=== PATIENT | male | born 1965 | race Hispanic/Latino ===

== ENCOUNTER → 2019-11-09 | Day surgery (SDC) | payer BC ==
[2019-11-06 15:28] LABS: BASOPHILS % 0.5 % (0.0-1.0); EOSINOPHILS # (AUTO) 0.2 (0.0-0.4); HEMATOCRIT 44.6 % (38.2-49.6); HEMOGLOBIN 14.7 g/dL (14.0-18.0); LYMPHOCYTES # (AUTO) 2.6 (1.0-3.2); LYMPHOCYTES % 33.7 % (18.0-39.1); MEAN CORPUSCULAR HEMOGLOBIN 29.3 pg (28-32); MEAN CORPUSCULAR VOLUME 88.8 fL (81-99); MONOCYTES # (AUTO) 0.9 (0.2-0.8); MONOCYTES % 11.6 % (4.4-11.3); NEUTROPHILS # (AUTO) 3.9 (2.1-6.9); NEUTROPHILS % 51.8 % (38.7-80.0); PLATELET COUNT 223 x10e3/uL (140-360); RED BLOOD COUNT 5.02 x10e6/uL (4.3-5.7); RED CELL DISTRIBUTION WIDTH 14.9 % (11.7-14.4)
[2019-11-06 16:15] LABS: BLOOD UREA NITROGEN 20 mg/dL (7-26); BUN/CREATININE RATIO 20 (6-25); CALCIUM 10.1 mg/dL (8.4-10.2); CHLORIDE 106 mmol/L (98-107); CREATININE, SERUM 0.99 mg/dL (0.72-1.25); EST GLOMERULAR FILTRATION RATE > 60 ML/MIN (60-); GLUCOSE 99 mg/dL (74-118); SODIUM 141 mmol/L (136-145)
[2019-11-06 16:35] LABS: CARBON DIOXIDE 20 mmol/L (22-29)
[~2019-11-09] MED LIST: AMLODIPINE BESY10 MG PO; ATORVASTATIN CA20 MG PO; CEFAZOLIN SOD 1 GM/NS 50ML 100 ML IV ONE; DEXAMETHASONE SOD PHOS INJ 4 MG/ML VIAL ONE; EPINEPHRINE 1 MG/ML 30ML VIAL ONE; EPINEPHRINE HCL 1:1000 1ML 1 MG/ML AMP ONE; FENTANYL CITRATE/PF 100MCG/2 ML INJ ONE; HYDROCHLOROTHIA25 MG PO; HYDROCODONE/APAP 10MG-325MG TAB ONE; KETOROLAC TROMETHAMINE 30 MG/ML VIAL ONE; LABETALOL HCL 5 MG/ML 20ML VIAL ONE; LIDOCAINE 2% /EPINEPHRINE 20 ML SDV INJ ONE; LIDOCAINE HCL 2% LOCAL INJ 5 ML SDV VIAL INJ ONE; LOSARTAN POTASS25 MG PO; MIDAZOLAM HCL 2 MG/2 ML VIAL ONE; NAPROXEN250 MG PO; ONDANSETRON HCL INJ 2MG/ML 2ML 2 MG/ML VIAL ONE; PROPOFOL IV EMULSION 10 MG/ML 20 ML VIAL ONE; ROCURONIUM BROMIDE 10 MG/ML 5ML VIAL IV ONE; ROPIVACAINE 0.5% 5 MG/ML 30 ML SDV ONE; SEVOFLURANE INHAL SOLN 250 ML PEN BTL ONE
[2019-11-09 10:20] VITALS: BP 125/81
--- NOTE | 2019-11-09 14:59 | Operative Report ---
DATE OF PROCEDURE: 11/09/2019 SURGEON: JUICE ROSS MD PLACE OF SURGERY: [facility]. HISTORY: Mr. Lanier is a 54-year-old male with ongoing complaints of pain of his right shoulder secondary to underlying rotator cuff tears as well as a labral tear of his right shoulder. The patient also has shoulder impingement. The patient elected to forgo any further conservative treatment and proceed on with a diagnostic arthroscopy of his right shoulder. The risks and benefits of surgery had been outlined to him in the Orthopedic Clinic as well as again prior to surgery consisting, but limited to the following: Infection, blood loss, nerve, vessel or tendon injury, DVT, ongoing pain, and stiffness. Informed consent was obtained. The patient was seen and identified in the preoperative holding area with his present. The right shoulder was marked by myself and the patient was then brought back to the operative suite after he was given a successful interscalene block by Anesthesia. A time-out was taken for Mr. Juan Alberto Lanier for diagnostic arthroscopy of his right shoulder and all were in agreement including nursing staff, Anesthesia, and myself. The patient was then given a successful general intubation anesthetic and then transferred over to the operative table and placed in the beach chair position with the right shoulder fully exposed. The right shoulder was then sterilely prepped and draped in usual standard fashion. The shoulder was inflated with 30 mL of sterile saline. A posterior portal was made, blunt trocar was inserted, and the arthroscopic camera was inserted. Immediately, it was noted that the patient has significant amount of villonodular synovitis throughout the entire shoulder joint. He had a significant labral tear noted along with a complete rotator cuff tear with mild retraction. Two anterior working portals were made as well as fourth lateral accessory portal was made using a 15 Bard-Gerald blade. Beginning anteriorly, I went ahead and did an arthroscopic synovectomy, removing all of the villonodular synovitis throughout the entire shoulder joint anteriorly and then posteriorly to both anterior lateral and posterior portals. This was done using a 4.0 shaver. Attention was then turned to the labral tear. The labral tear was mainly from the 12 down to approximately the 4 o'clock position. The glenoid attachment was abraded with a hand rasp and upon which time, 2 labral anchor sutures were passed through and anchors were deployed at approximately the 2 o'clock as well as the 4 o'clock position, reattaching the labrum back down to its bony insertion. Upon probing, the repair was found to be rather stable. We re-established the anterior labral bumper. The patient had marked underlying synovitis and fraying of the biceps tendon. The debridement was carried out of the fraying and the partial biceps tear. The rotator cuff tear was identified. Upon examination of the subacromial space, the complete rotator cuff tear was identified. The patient has marked impingement with marked AC arthrosis. Upon which time, through both the posterior and the lateral portal, an arthroscopic subacromial decompression was carried out using the 4.0 bur and arthroscopic cervical decompression was complete, i.e., acromioplasty. Attention then turned to the distal clavicle and degenerative AC joint. The same 4.0 bur was then used to complete the arthroscopic distal clavicle resection along with removal of degenerative AC meniscus and distal clavicle resection was completed arthroscopically with a 4.0 bur, i.e., distal Chava procedure. Copious irrigation was carried out of the joint. Attention was then redirected back to the rotator cuff tear and the location was marked off arthroscopically. A small incision was made directly over the tear. Blunt dissection was carried down and the deltoid muscle was retracted. The rotator tear was identified. Upon which time, the bony bed was abraded with a hand rasp. Copious irrigation was carried out. The initial 6.5 punch was completed and a 6.5 Mitek Healix anchor was deployed and the 2 pairs of suture limbs were passed through the rotator cuff tendon, reattaching the tendon and back down to the bony insertion. The patient also had an intrasubstance split noted and the intrasubstance repair was carried out using the Orthocord suture and reconstruction and repair of the supraspinatus and infraspinatus and subscapularis was completed. Upon range of motion testing, the repair of all 3 tendons were found to be very stable. There was complete coverage of the humeral head. Upon range of motion testing, there were no signs of instability noted. Copious irrigation was carried out. Deep layer closure was done 1 Ethibond, 0 Vicryl, 2-0 Vicryl, and skin reapproximated using michael. PREOPERATIVE DIAGNOSES: 1. Right shoulder labral tear. 2. Right shoulder rotator cuff tear. 3. Right shoulder impingement AC arthrosis. POSTOPERATIVE DIAGNOSES: 1. Right shoulder labral tear. 2. Complete rotator cuff tear of the right shoulder: Supraspinatus, infraspinatus, and subscapularis. 3. Villonodular synovitis of the right shoulder. 4. Right shoulder impingement AC arthrosis. PROCEDURES: 1. Diagnostic arthroscopy of the right shoulder with an arthroscopic right shoulder labral repair with the use of 2 Arthrex 2.9 labral anchors. 2. Arthroscopic synovectomy of the right shoulder with removal of villonodular synovitis of the right shoulder. 3. Arthroscopic subacromial decompression, i.e., acromioplasty. 4. Arthroscopic distal clavicle resection, i.e., Chava procedure. 5. Open rotator cuff reconstruction and repair of the right rotator cuff tendon: Supraspinatus, infraspinatus, and subscapularis. This is with the use of a Mitek 6.5 Healix anchor with a [id number] intrasubstance repair. ANESTHESIA: Regional block with general intubation anesthetic. ESTIMATED BLOOD LOSS: 10 to 15 mL. SPECIMENS: Bones and synovium. COMPLICATIONS: None. CONDITION: Stable to PACU. The patient was seen in PACU. Dressings were clean and dry. Capillary refills were brisk. The intraoperative findings were reviewed and discussed with his . Discharge wound care instructions were given. The patient discharged home with [place] as well as Keflex, and asked to follow up in Ortho Clinic in 12 to 14 days. Discharge wound care instructions were also discussed with nursing staff. MD JAYDON BREEN/ANGELICA /[id number]
== END | disposition home or self-care (01) ==
LOC: OR 05:31
PROVIDERS: ATTEND Orthopaedic Surgery
DX: S43.421A Sprain of right rotator cuff capsule, initial encounter (principal); S43.431A Superior glenoid labrum lesion of right shoulder, initial encounter; S46.211A Strain of muscle, fascia and tendon of other parts of biceps, right arm, initial encounter; M75.51 Bursitis of right shoulder; G47.33 Obstructive sleep apnea (adult) (pediatric); I10 Essential (primary) hypertension; E78.5 Hyperlipidemia, unspecified; K21.9 Gastro-esophageal reflux disease without esophagitis; X58.XXXA Exposure to other specified factors, initial encounter; Z01.810 Encounter for preprocedural cardiovascular examination; Z01.812 Encounter for preprocedural laboratory examination; Z11.59 Encounter for screening for other viral diseases; Z86.19 Personal history of other infectious and parasitic diseases
CPT/HCPCS: 23120; 23420; 29807; 36415; 80048; 85025; 93005; C1713 ×2; J0171; J0690; J1100; J1885; J2001 ×2; J2250; J2405; J2704; J2795; J3010; J3490; U0002

== ENCOUNTER 2020-02-13 17:12 | Emergency (ER) | payer BC ==
[~2020-02-13] VITALS: Ht 170.2 cm; Wt 103.4 kg
[~2020-02-13 17:12] MED LIST changes: -CEFAZOLIN SOD 1 GM/NS 50ML 100 ML IV ONE; -DEXAMETHASONE SOD PHOS INJ 4 MG/ML VIAL ONE; -EPINEPHRINE 1 MG/ML 30ML VIAL ONE; -EPINEPHRINE HCL 1:1000 1ML 1 MG/ML AMP ONE; -FENTANYL CITRATE/PF 100MCG/2 ML INJ ONE; -HYDROCODONE/APAP 10MG-325MG TAB ONE; -KETOROLAC TROMETHAMINE 30 MG/ML VIAL ONE; -LABETALOL HCL 5 MG/ML 20ML VIAL ONE; -LIDOCAINE 2% /EPINEPHRINE 20 ML SDV INJ ONE; -LIDOCAINE HCL 2% LOCAL INJ 5 ML SDV VIAL INJ ONE; -MIDAZOLAM HCL 2 MG/2 ML VIAL ONE; -ONDANSETRON HCL INJ 2MG/ML 2ML 2 MG/ML VIAL ONE; -PROPOFOL IV EMULSION 10 MG/ML 20 ML VIAL ONE; -ROCURONIUM BROMIDE 10 MG/ML 5ML VIAL IV ONE; -ROPIVACAINE 0.5% 5 MG/ML 30 ML SDV ONE; -SEVOFLURANE INHAL SOLN 250 ML PEN BTL ONE
--- OUTSIDE RECORDS SUMMARY | 2020-02-13 18:00 | XMS REPORT | Continuity of Care Document ---
Author Author [facility] Organization [facility] Address [address] [place] [id number] Phone Unavailable Care Team Providers Care Management Internship Name Role Phone JUICE BENITEZ Attjhon Unavailable Raeann MCNEAL Unavailable Problems This patient has no known problems. Allergies, Adverse Reactions, Alerts This patient has no known allergies or adverse reactions. Medications This patient has no known medications. Procedures This patient has no known procedures. Results Test Description Test Time Test Comments Results Result Comments Source MRI SHOULDER RIGHT W 2019-10-11 14:53:00 [place] [address] Patient Name: JR BRO ARIZMENDI MR #: [id number] : 1965 Age/Sex: 54/M Req #: [id number] Adm Physician: Ordered by: JUICE BENITEZ DO Report #: [id number] Location: DX Room/Bed: Procedure: [id number] MRI/MRI SHOULDER RIGHT W Exam Date: Exam Time: REPORT STATUS: Signed TECHNIQUE: Magnetic resonance imaging of the RIGHT SHOULDER was performed after intra-articular injection of contrast. COMPARISON: None available. HISTORY: Pain FINDINGS: MUSCLES AND TENDONS: Rotator Cuff: Tendons: Tendinosis involving the supraspinatus and infraspinatus without high-grade tear. High-grade partial thickness articular sided tearing of the subscapularis. Muscles: Mild subscapularis atrophy. Biceps Tendon: The long head of the biceps tendon is within the bicipital groove. Longitudinal split tearing GLENOHUMERAL JOINT: Glenoid Labrum: Superior and posterior labral tearing with multilobular para labral cyst measuring approximately 1.4 cm. Articular Cartilage: Partial-thickness cartilage loss AC JOINT AND ACROMION: Mild hypertrophic degenerative changes of the acromioclavicular joint. The acromion is unremarkable. Bone: No acute fracture. Soft Tissues: Otherwise, the soft tissues appear unremarkable. IMPRESSION: Subscapularis high-grade partial- thickness articular sided tearing with mild atrophy. Long head biceps longitudinal split tearing. Superior and posterior labral tearing with paralabral cyst. Signed by: Dr. Nat Moreland M.D. on 10/11/2019 2:58 PM Dictated By: NAT MORELAND MD 57 Transcribed By: REGINA on 10/11/191457 COPY TO: JUICE BENITEZ DO ARTHROCENTESIS-INT JOINT 2019-10-11 14:32:00 [place] [address] Patient Name: JR BRO ARIZMENDI MR #: [id number] : 1965 Age/Sex: 54/M Req #: [id number] Adm Physician: Ordered by: JUICE BENITEZ DO Report #: [id number] Location: DX Room/Bed: Procedure: [id number] IR/ARTHROCENTESIS-INT JOINT Exam Date: 10/11/19 Exam Time: 1245 REPORT STATUS: Signed EXAM: INJECTION ARTHROGRAM SHOULDER, ARTHROCENTESIS-INT JOINT DATE: 10/11/2019 12:00 AM INDICATION: Right shoulder pain COMPARISON: None Physician performing procedure: Dr. Gio Cooper PROCEDURES PERFORMED: Fluoroscopically-guided right gl enohumeral arthrogram with MRI to follow Fluoro time: 0.5 Dose: 3.6mGy Anesthesia: Local, 1% lidocaine Devices: 22 gauge BD Quincke needle PROCEDURE REPORT: After written and verbal consent were obtained, the patient was placed supine on the fluoroscopy table with the right arm in external rotation. Using fluoroscopic guidance, sterile technique and local anesthesia, a 22 gauge, 3.5 inch needle was inserted percutaneously into the right glenohumeral joint. Proper placement was confirmed by injecting Isovue 300 into the joint under fluoroscopy. Next, 10cc of a 1:100 mixture of Multihance with Isovue 300 were then injected. Complications: None Blood loss: Minimal Samples: None Patient disposition: MRI in stable condition. IMPRESSION: Uncomplicated fluoroscopically-guided right glenohumeral joint arthrogram with MRI to follow. Contrast is within the joint. See MRI report for full findings. Signed by: Gio Cooper MD on 10/11/2019 2:33 PM Dictated By: GIO COOPER MD 1433 Transcribed By: REGINA on 10/11/19 1433 COPY TO: JUICE BENITEZ DO INJECTION ARTHROGRAM SHOULDER 2019-10-11 14:32:00 [place] [address] Patient Name: JR BRO ARIZMENDI MR #: [id number] : 1965 Age/Sex: 54/M Req #: [id number] Adm Physician: Ordered by: JUICE BENITEZ DO Report #: [id number] Location: DX Room/Bed: Procedure: [id number] IR/INJECTION ARTHROGRAM SHOULDER Exam Date: 10/11/19 Exam Time: 1245 REPORT STATUS: Signed EXAM: INJECTION ARTHROGRAM SHOULDER, ARTHROCENTESIS-INT JOINT DATE: 10/11/2019 12:00 AM INDICATION: Right shoulder pain COMPARISON: None Physician performing procedure: Dr. Gio Cooper PROCEDURES PERFORMED: Fluoroscopically-guided right glenohumeral arthrogram with MRI to follow Fluoro time: 0.5 Dose: 3.6mGy Anesthesia: Local, 1% lidocaine Devices: 22 gauge BD Quincke needle PROCEDURE REPORT: After written and verbal consent were obtained, the patient was placed supine on the fluoroscopy table with the right arm in external rotation. Using fluoroscopic guidance, sterile technique and local anesthesia, a 22 gauge, 3.5 inch needle was inserted percutaneously into the right glenohumeral joint. Proper placement was confirmed by injecting Isovue 300 into the joint under fluoroscopy. Next, 10cc of a 1:100 mixture of Multihance with Isovue 300 were then injected. Complications: None Blood loss: Minimal Samples: None Patient disposition: MRI in stable condition. IMPRESSION: Uncomplicated fluoroscopically-guided right glenohumeral joint arthrogram with MRI to follow. Contrast is within the joint. See MRI report for full findings. Signed by: Gio Cooper MD on 2019 2:33 PM Dictated By: GIO COOPER MD 1433 Transcribed By: REGINA on 10/11/19 1433 COPY TO: JUICE BENITEZ DO MRI KNEE LEFT WO 2019-08-25 09:10:00 [place] [address] Patient Name: JR BRO ARIZMENDI MR #: [id number] : 1965 Age/Sex: 54/M Req #: [id number] Adm Physician: Ordered by: ANMOL MCNEAL Report #: [id number] Location: MRI Room/Bed: Procedure: [id number] MRI/MRI KNEE LEFT WO Exam Date: Exam Time: REPORT STATUS: Signed TECHNIQUE: Magnetic resonance imaging of the LEFT KNEE was performed WITHOUT injected contrast. HISTORY: Left knee COMPARISON: None available. FINDINGS: LIGAMENTS AND TENDONS: ACL: Intact PCL: Intact Collateral ligaments: Intact Iliotibial band: Unremarkable Popliteal tendon: Intact Extensor mechanism: Intact JOINT: Menisci: Medial: Complex tearing of the body and posterior horn with dominant horizontal component. Lateral: Complex tearing of the anterior body and horn with dominant horizontal component and with parameniscal cyst anteriorly. Articular Cartilage: Medial Compartment: Partial-thickness cartilage loss, with areas of high-grade erosion Lateral Compartment: Partial- thickness cartilage loss Patellofemoral Compartment: Partial- thickness cartilage loss Joint Fluid: The amount of fluid within the joint is within physiologic limits. BONE: No focal or infiltrative bone marrow replacing abnormality. No acute fracture. SOFT TISSUES: Otherwise, unremarkable. IMPRESSION: Medial and lateral meniscus complex tearing with partial thickness cartilage loss Signed by: Dr. Nat Moreland M.D. on 08/25/2019 9:12 AM Dictated By: NAT MORELAND MD 1 Transcribed By: REGINA on 08/25/19911 COPY TO: ANMOL MCNEAL MRI RIGHT KNEE WO 2019-05-10 09:43:00 [place] [address] Patient Name: JR BRO ARIZMENDI MR #: [id number] : 1965 Age/Sex: 54/M Req #: [id number] Adm Physician: Ordered by: ANMOL MCNEAL Report #: [id number] Location: MRI Room/Bed: Procedure: [id number] MRI/MRI RIGHT KNEE WO Exam Date: Exam Time: REPORT STATUS: Signed Right knee MRI without contrast. History: Knee pain. Twisting injury. Decreased range of motion. Pain not responding to conservative management Comparison: None. Technique: Multiplanar multi-sequence MRI of the knee without contrast. Findings: Medial compartment: Complex tear involving the posterior horn and body segments of the medial meniscus. Articular cartilage fraying and deep fissuring in the medial compartment. Peripheral marginal osteophytes. The medial collateral ligament complex is intact. Lateral compartment: Complex displaced tear involving the posterior horn and body segments of the lateral meniscus. Articular cartilage fraying and deep measuring in the lateral compartment with mild underlying bone marrow edema. Peripheral marginal osteophytes. The lateral collateral ligament complex is intact. Intercondylar notch: The ACL and PCL are intact. Patellofemoral compartment: Articular cartilage fraying and fissuring in the patellofemoral compartment with mild underlying bone marrow edema. Extensor mechanism: The quadriceps and patellar tendons are normal. Other findings: There is a joint effusion and synovitis. There is no acute fracture, subluxation or avascular necrosis. 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 Complex medial meniscus tear with associated degenerative arthrosis in the medial compartment of the knee. Articular cartilage fraying and deep fissuring in the patellofemoral compartment with mild underlying bone marrow edema. Signed by: Dr. Ricardo Rodriguez M.D. on 05/10/2019 9:53 AM Dictated By: RICARDO RODRIGUEZ MD, MD 2 Transcribed By: REGINA on 05/10/19952 COPY TO: ANMOL MCNEAL
[2020-02-13 18:24] LABS: BASOPHILS % 0.5 % (0.0-1.0); EOSINOPHILS # (AUTO) 0.2 (0.0-0.4); HEMATOCRIT 41.6 % (38.2-49.6); HEMOGLOBIN 13.6 g/dL (14.0-18.0); LYMPHOCYTES # (AUTO) 2.7 (1.0-3.2); LYMPHOCYTES % 42.4 % (18.0-39.1); MEAN CORPUSCULAR HEMOGLOBIN 28.5 pg (28-32); MEAN CORPUSCULAR HGB CONC 32.7 g/dL (31-35); MEAN CORPUSCULAR VOLUME 87.2 fL (81-99); MONOCYTES # (AUTO) 0.6 (0.2-0.8); MONOCYTES % 9.9 % (4.4-11.3); NEUTROPHILS # (AUTO) 2.8 (2.1-6.9); NEUTROPHILS % 43.9 % (38.7-80.0); PLATELET COUNT 240 x10e3/uL (140-360); RED BLOOD COUNT 4.77 x10e6/uL (4.3-5.7); RED CELL DISTRIBUTION WIDTH 14.9 % (11.7-14.4)
[2020-02-13 18:42] LABS: ALANINE AMINOTRANSFERASE 39 IU/L (0-55); ALBUMIN 4.1 g/dL (3.5-5.0); ALBUMIN/GLOBULIN RATIO 1.1 (0.8-2.0); ALKALINE PHOSPHATASE 64 IU/L (40-150); ANION GAP 14.6 mmol/L (8-16); BLOOD UREA NITROGEN 22 mg/dL (7-26); BUN/CREATININE RATIO 26 (6-25); CALCIUM 9.1 mg/dL (8.4-10.2); CARBON DIOXIDE 24 mmol/L (22-29); CHLORIDE 105 mmol/L (98-107); CREATINE KINASE 116 IU/L (30-200); CREATININE, SERUM 0.86 mg/dL (0.72-1.25); EST GLOMERULAR FILTRATION RATE > 60 ML/MIN (60-); GLUCOSE 101 mg/dL (74-118); POTASSIUM 3.6 mmol/L (3.5-5.1); SODIUM 140 mmol/L (136-145)
--- NOTE | 2020-02-13 18:50 | Emergency Department Note ---
History of Present Illnes History of Present Illness Chief Complaint: COVID PUI History of Present Illness This is a 54 year old male POV for evaluation of possible COVID, pt states that he had a CT Scan of his chest that revealed pneumonia possibly due to COVID-19, pt c/o shortness of breath, initial vital signs WNL, room air O2 sat at 97%, pt had COVID back in December and was treated with abx. PT TESTED POSITIVE FOR COVID BEGINNING OF DECEMBER AN HAS HAD 2 NEGATIVE TESTS SINCE, STATES THE SOB HE GETS WITH EXERTION HAS NOT CHANGED SINCE HE INITIALLY HAD COVID IN DECEMBER, SYMPTOMS ARE UNCH ANGED. DENIES FEVER, STATES ONLY MILD OCCASIONAL COUGH . 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 Any updates have been documented here. Past Medical History Recent Fever: No Clinical Suspicion of Infectio: No New/Unexplained Change in Ment: No Past Medical History: Hypertension Past Surgical History: None Social History Smoking Cessation: Current some day smoker Alcohol Use: None Any Illegal Drug Use: No Family History Family history of heart diseas: No Review of Systems Review of Systems Constitutional: Reports no symptoms EENTM: Reports no symptoms Cardiovascular: Reports no symptoms Respiratory: Reports as per HPI Gastrointestinal: Reports no symptoms Genitourinary: Reports no symptoms Musculoskeletal: Reports no symptoms Integumentary: Reports no symptoms Neurological: Reports no symptoms Psychological: Reports no symptoms Endocrine: Reports no symptoms Hematological/Lymphatic: Reports no symptoms Physical Exam Related Data Allergies: Coded Allergies: No Known Allergies (Unverified , 11/06/19) Triage Vital Signs Vital Signs Date Time Temp Pulse Resp B/P (MAP) Pulse Ox O2 Delivery O2 Flow Rate FiO2 02/13/20 17:26 98.3 86 20 125/90 97 Room Air Vital signs reviewed: Yes Physical Exam CONSTITUTIONAL Constitutional: Present well-developed, Present well-nourished HENT HENT: Present normocephalic, Present atraumatic, Present oropharynx clear/moist, Present nose normal HENT L/R: Present left ext ear normal, Present right ext ear normal EYES Eyes: Reports PERRL, Reports conjunctivae normal NECK Neck: Present ROM normal PULMONARY Pulmonary: Present effort normal, Present breath sounds normal CARDIOVASCULAR Cardiovascular: Present regular rhythm, Present heart sounds normal, Present capillary refill normal, Present normal rate GASTROINTESTINAL Abdominal: Present soft, Present nontender, Present bowel sounds normal GENITOURINARY Genitourinary: Present exam deferred SKIN Skin: Present warm, Present dry MUSCULOSKELETAL Musculoskeletal: Present ROM normal NEUROLOGICAL Neurological: Present alert, Present oriented x 3, Present no gross motor or sensory deficits PSYCHOLOGICAL Psychological: Present mood/affect normal, Present judgement normal Results Laboratory Result Diagram: 02/13/20181402/13/201814 Laboratory Laboratory Tests Test 02/13/20 18:15 White Blood Count 6.39 x10e3/uL (4.8-10.8) Red Blood Count 4.77 x10e6/uL (4.3-5.7) Hemoglobin 13.6 g/dL (14.0-18.0) Hematocrit 41.6 % (38.2-49.6) Mean Corpuscular Volume 87.2 fL (81-99) Mean Corpuscular Hemoglobin 28.5 pg (28-32) Mean Corpuscular Hemoglobin Concent 32.7 g/dL (31-35) Red Cell Distribution Width 14.9 % (11.7-14.4) Platelet Count 240 x10e3/uL (140-360) Neutrophils (%) (Auto) 43.9 % (38.7-80.0) Lymphocytes (%) (Auto) 42.4 % (18.0-39.1) Monocytes (%) (Auto) 9.9 % (4.4-11.3) Eosinophils (%) (Auto) 3.0 % (0.0-6.0) Basophils (%) (Auto) 0.5 % (0.0-1.0) Neutrophils # (Auto) 2.8 (2.1-6.9) Lymphocytes # (Auto) 2.7 (1.0-3.2) Monocytes # (Auto) 0.6 (0.2-0.8) Eosinophils # (Auto) 0.2 (0.0-0.4) Basophils # (Auto) 0.0 (0.0-0.1) Absolute Immature Granulocyte (auto 0.02 x10e3/uL (0-0.1) Sodium Level 140 mmol/L (136-145) Potassium Level 3.6 mmol/L (3.5-5.1) Chloride Level 105 mmol/L (98-107) Carbon Dioxide Level 24 mmol/L (22-29) Anion Gap 14.6 mmol/L (8-16) Blood Urea Nitrogen 22 mg/dL (7-26) Creatinine 0.86 mg/dL (0.72-1.25) Estimat Glomerular Filtration Rate > 60 ML/MIN (60-) BUN/Creatinine Ratio 26 (6-25) Glucose Level 101 mg/dL (74-118) Calcium Level 9.1 mg/dL (8.4-10.2) Total Bilirubin 0.4 mg/dL (0.2-1.2) Aspartate Amino Transf (AST/SGOT) 30 IU/L (5-34) Alanine Aminotransferase (ALT/SGPT) 39 IU/L (0-55) Alkaline Phosphatase 64 IU/L (40-150) Creatine Kinase 116 IU/L (30-200) Total Protein 7.8 g/dL (6.5-8.1) Albumin 4.1 g/dL (3.5-5.0) Globulin 3.7 g/dL (2.3-3.5) Albumin/Globulin Ratio 1.1 (0.8-2.0) Lab results reviewed: Yes Imaging Imaging results reviewed: Yes Impressions Procedure: [id number] CT/CT CHEST W Exam Date: 02/13/20 Exam Time: 2011 REPORT STATUS: Signed EXAM: CT Chest WITH contrast 02/13/2020 8:12 PM INDICATION: PE PROTOCOL COMPARISON: None TECHNIQUE: Chest was scanned utilizing a multidetector helical scanner from the lung apex through the level of the adrenal glands without administration of IV contrast. Coronal and sagittal reformations were obtained. Routine protocol was performed. IV CONTRAST: 100 mL of Omnipaque 300 COMPLICATIONS: None RADIATION DOSE: Total DLP: 503.33 mGy*cm Estimated effective dose: (DLP x 0.014 x size factor) mSv CTDIvol has been reviewed. It is below the limits set by the Radiation Protocol Committee (RPC). FINDINGS: LINES/ TUBES: None. LUNGS AND AIRWAYS: There is no pulmonary embolism to the level of interlobar pulmonary arteries. The segmental and subsegmental pulmonary arteries are not adequately opacified cannot be evaluated. Diffuse interstitial opacities are seen in both lung superimposed on paraseptal emphysematous changes. Airways are normal. PLEURA: The pleural spaces are clear. HEART AND MEDIASTINUM: The thyroid gland is normal. Slightly prominent mediastinal lymph nodes measuring up to 1.4 cm (series 2, image 38) likely reactive. No axillary lymphadenopathy. The heart is normal in size.. There is no pericardial effusion. UPPER ABDOMEN: There is a small hiatal hernia. Hepatic steatosis BONES: There are degenerative changes in the spine. SOFT TISSUES: Unremarkable. IMPRESSION: 1. No evidence of pulmonary embolism. 2. Diffuse interstitial opacities are seen in both lung superimposed on paraseptal emphysematous changes. Pneumonia could be considered in appropriate clinical setting. 3. Prominent mediastinal lymph nodes are likely reactive. 4. Small hiatal hernia. Recommend consultation with GI. 5. Hepatic steatosis. 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 IN DECEMBER CBC, CMP, CK, BNP, CT CHEST W ORDERED TO EVAL FOR LEUKOCYTOSIS, ELECTROLYTE ABNORMALITY, PULMONARY EDEMA, PULMONARY EMBOLISM Assessment & Plan Final Impression: (1) Dyspnea Last Vital Signs Date Time Temp Pulse Resp B/P (MAP) Pulse Ox O2 Delivery O2 Flow Rate FiO2 02/13/20 17:26 98.3 86 20 125/90 97 Room Air Home Meds Reported Medications Hydrochlorothiazide (HYDROCHLOROTHIAZIDE) 25 Mg Tablet, 25 MG PO DAILY, #30 TAB 11/06/19 Losartan Potassium (LOSARTAN POTASSIUM) 25 Mg Tablet, 50 MG PO DAILY 11/06/19 Amlodipine Besylate (AMLODIPINE BESYLATE) 10 Mg Tablet, 10 MG PO DAILY, #30 TAB 11/06/19 Atorvastatin Calcium (ATORVASTATIN CALCIUM) 20 Mg Tablet, 20 MG PO HS, #30 TAB 11/06/19 Naproxen (NAPROXEN) 250 Mg Tablet, 500 MG PO DAILY, TAB 11/06/19 SOMMER COSTELLO MD Feb 13, 2020 18:50
--- NOTE | 2020-02-13 21:06 | Diagnostic Imaging Report ---
EXAM: CT Chest WITH contrast 02/13/2020 8:12 PM INDICATION: PE PROTOCOL COMPARISON: None TECHNIQUE: Chest was scanned utilizing a multidetector helical scanner from the lung apex through the level of the adrenal glands without administration of IV contrast. Coronal and sagittal reformations were obtained. Routine protocol was performed. IV CONTRAST: 100 mL of Omnipaque 300 COMPLICATIONS: None RADIATION DOSE: Total DLP: 503.33 mGy*cm Estimated effective dose: (DLP x 0.014 x size factor) mSv CTDIvol has been reviewed. It is below the limits set by the Radiation Protocol Committee (RPC). FINDINGS: LINES/ TUBES: None. LUNGS AND AIRWAYS: There is no pulmonary embolism to the level of interlobar pulmonary arteries. The segmental and subsegmental pulmonary arteries are not adequately opacified cannot be evaluated. Diffuse interstitial opacities are seen in both lung superimposed on paraseptal emphysematous changes. Airways are normal. PLEURA: The pleural spaces are clear. HEART AND MEDIASTINUM: The thyroid gland is normal. Slightly prominent mediastinal lymph nodes measuring up to 1.4 cm (series 2, image 38) likely reactive. No axillary lymphadenopathy. The heart is normal in size.. There is no pericardial effusion. UPPER ABDOMEN: There is a small hiatal hernia. Hepatic steatosis BONES: There are degenerative changes in the spine. SOFT TISSUES: Unremarkable. IMPRESSION: 1. No evidence of pulmonary embolism. 2. Diffuse interstitial opacities are seen in both lung superimposed on paraseptal emphysematous changes. Pneumonia could be considered in appropriate clinical setting. 3. Prominent mediastinal lymph nodes are likely reactive. 4. Small hiatal hernia. Recommend consultation with GI. 5. Hepatic steatosis. Signed by: Anup Devlin MD on 02/13/2020 9:02 PM
[2020-02-13] MEDS ORDERED: SODIUM CHLORIDE 0.9% 50ML 50 ML ONE (21:51)
[2020-02-13] MEDS ORDERED: IOPAMIDOL 370 MG/ML 200 ML INFUS..BTL INJ ONE (21:51)
[2020-02-13 22:00] VITALS: BP 122/84
== END 2020-02-13 22:01 | disposition home or self-care (01) ==
LOC: ER 17:34
DX: R06.00 Dyspnea, unspecified (principal); I10 Essential (primary) hypertension; F17.210 Nicotine dependence, cigarettes, uncomplicated
CPT/HCPCS: 36415; 71260; 80053; 82550; 82553; 83880; 84484; 85025; 99284; Q9967

== ENCOUNTER 2020-10-01 16:51 | Emergency (ER) | payer BC, OTHER ==
[~2020-10-01] VITALS: Ht 175.3 cm; Wt 106.1 kg
[2020-10-01] MEDS ORDERED: LOSARTAN-HCTZ1 EACH (17:22)
[2020-10-01] MEDS ORDERED: ACETAMINOPHEN 325 MG TAB PO ONE (17:30)
[2020-10-01] MEDS ORDERED: KETOROLAC TROMETHAMINE 30 MG/ML VIAL IV ONE (17:30)
[2020-10-01] MEDS ORDERED: CEFTRIAXONE 1 GM VIAL IV ONE (17:30)
[2020-10-01] MEDS ORDERED: DEXAMETHASONE SOD PHOS 10 MG/1 ML VIAL IV ONE (17:30)
[2020-10-01] MEDS ORDERED: CEFDINIR300 MG PO (17:34)
[2020-10-01] MEDS ORDERED: PREDNISONE20 MG PO (17:34)
[2020-10-01] MEDS ORDERED: TYLENOL # 31 EA PO (17:34)
[2020-10-01] MEDS ORDERED: DEXAMETHASONE SOD PHOS INJ 4 MG/ML VIAL ONE (17:42)
[2020-10-01] MEDS ORDERED: KETOROLAC TROMETHAMINE 30 MG/ML VIAL ONE (17:42)
[2020-10-01] MEDS ORDERED: CEFTRIAXONE 1 GM VIAL ONE (17:43)
[2020-10-01] MEDS ORDERED: SODIUM CHLORIDE 0.9% 50ML 50 ML ONE (17:43)
[2020-10-01] MEDS ORDERED: ACETAMINOPHEN 325 MG TAB ONE (17:43)
[2020-10-01] MEDS ORDERED: DEXAMETHASONE SOD PHOS INJ 4 MG/ML VIAL IV ONE (17:45)
[2020-10-01] MEDS ORDERED: CEFTRIAXONE 1 GM in SODIUM CHLORIDE 0.9% 50ML 50 ML IV ONE (17:45)
== END 2020-10-01 18:34 | disposition home or self-care (01) ==
LOC: FSED 18:34
DX: R06.00 Dyspnea, unspecified (principal); R05 Cough; J40 Bronchitis, not specified as acute or chronic; J06.9 Acute upper respiratory infection, unspecified; I10 Essential (primary) hypertension
CPT/HCPCS: 71046; 80053; 85025; 96374; 96375; 99284; J0696; J1100 ×2; J1885

== ENCOUNTER 2020-10-09 10:53 | Emergency (ER) | payer OTHER ==
[~2020-10-09] VITALS: Ht 175.3 cm; Wt 106.1 kg
[~2020-10-09 10:53] MED LIST changes: +CEFDINIR300 MG PO; +LOSARTAN-HCTZ1 EACH; +PREDNISONE20 MG PO; +TYLENOL # 31 EA PO
[2020-10-09] MEDS ORDERED: PENICILLIN G BENZATHINE LA 1.2 MU TBX IM STA (11:56)
[2020-10-09] MEDS ORDERED: AZITHROMYCIN250 MG PO (11:59)
[2020-10-09] MEDS ORDERED: PREDNISONE20 MG PO (11:59)
[2020-10-09] MEDS ORDERED: VENTOLIN HFA18 GM INH (11:59)
== END 2020-10-09 12:10 | disposition home or self-care (01) ==
LOC: FSED 11:20
DX: R50.9 Fever, unspecified (principal); J02.0 Streptococcal pharyngitis; J84.10 Pulmonary fibrosis, unspecified; I10 Essential (primary) hypertension
CPT/HCPCS: 71250; 83518; 87400; 99283